=== PATIENT | female | born 1940 | race Caucasian/White ===

== ENCOUNTER 2019-10-11 10:30 | Outpatient (CLI) | payer OTHER, SELFPAY ==
--- NOTE | ~2019-10-11 | MM_ITS ---
EXAMINATION: MM screening ligia BI w radha HISTORY: Screening mammogram TECHNIQUE: Craniocaudal and mediolateral oblique 3-D tomosynthesis images were obtained and synthetic 2-D images were generated. CAD analysis was submitted and interpreted. COMPARISON: 05/01/2018, 03/31/2017 bilateral digital screening mammogram examinations 12/10/2015 diagnostic right digital mammogram and limited right breast ultrasound 11/29/2015 bilateral digital screening mammogram BREAST PARENCHYMAL COMPOSITION: There are scattered areas of fibroglandular density. FINDINGS: A heart monitor device overlies the left breast. There is no evidence of suspicious mass, c alcification, or architectural distortion to suggest malignancy in either breast. There has been no s uspicious interval change. IMPRESSION: 1. No mammographic evidence of malignancy. 2. Recommend routine screening mammography in one year. BI-RADS Category 1: Negative Reviewed, dictated and finalized at location A. TRIMMER
== END 2019-10-11 10:31 | disposition home or self-care (01) ==
LOC: ANHIMG 10:31
PROVIDERS: PCP Family Medicine; Visit Provider Nurse Practitioner Family
DX: Z12.31 Encounter for screening mammogram for malignant neoplasm of breast (principal)
CPT/HCPCS: 77063; 77067

== ENCOUNTER 2019-11-07 14:02 | Outpatient (CLI) | payer OTHER, SELFPAY ==
[2019-11-07 15:11] LABS: Hematocrit 37.2 % (37.0-47.0); Hemoglobin 12.4 g/dL (12.0-15.0)
[2019-11-07 15:23] LABS: Blood Urea Nitrogen 17 mg/dL (7-17); Calcium 9.2 mg/dL (8.4-10.2); Carbon Dioxide 29 mmol/L (22-30); Chloride 90 mmol/L (98-107); Estimated Glomerular Filt Rate > 60; Glucose 88 mg/dL (65-105); Potassium 4.4 mmol/L (3.4-5.0); Sodium 131 mmol/L (137-145)
[2019-11-07 18:29] LABS: Folic Acid > 20.0 ng/mL (2.76->20)
== END 2019-11-07 14:03 | disposition home or self-care (01) ==
PROVIDERS: PCP Family Medicine; Visit Provider Family Medicine
DX: D50.0 Iron deficiency anemia secondary to blood loss (chronic) (principal)
CPT/HCPCS: 36415; 80048; 82607; 82746; 85014; 85018

== ENCOUNTER 2020-04-02 12:38 | Outpatient (CLI) | payer OTHER, SELFPAY ==
--- NOTE | ~2020-04-02 | DEXA_ITS ---
Bone Density Report Name: Jovana Singh Age: 79 Sex: Female Ethnicity: White Date of : 1940 Indication: osteopenia; monitoring treatment; height loss; prior fracture; hysterectomy; postmenopausal Referring Provider: [place] DUQUE Study: Bone densitometry was performed. Exam Date: April 02, 2020 Accession number: [id number] Bone Density: Region BMD T-score Z-score Classification AP Spine (L1, L4) 0.946 -0.8 1.8 Normal Femoral Neck (Left) 0.624 -2.0 0.3 Osteopenia Total Hip (Left) 0.822 -1.0 1.1 Normal Total Hip Bilateral Avg 0.804 -1.2 1.0 Osteopenia Femoral Neck (Right) 0.659 -1.7 0.6 Osteopenia Total Hip (Right) 0.785 -1.3 0.8 Osteopenia World Health Organization criteria for BMD impression classify patients as: Normal (T-score at or above -1.0), Osteopenia (T-score between -1.0 and -2.5), or Osteoporosis (T-score at or below -2.5). 10-year Fracture Risk: FRAX not reported because: Treated for osteoporosis Previous Exams: Region Exam Age BMD T-score BMD Change BMD Change Date g/cm2 vs Baseline vs Previous AP Spine(L1, L4) 04/02/2020 79 0.946 -0.8 0.014(1.5%)# 0.035(3.8%)* 12/03/2015 75 0.911 -1.1 -0.021(-2.2%)# -0.046(-4.8%)# 09/20/2012 72 0.957 -0.7 0.025(2.7%)# 0.011(1.1%)# 04/21/2009 68 0.946 -0.8 0.014(1.5%) 0.014(1.5%) 02/16/2006 65 0.932 -1.0 Total Hip(Left) 04/02/2020 79 0.822 -1.0 -0.073(-8.2%)# -0.032(-3.7%)* 12/03/2015 75 0.854 -0.7 -0.042(-4.6%)# -0.024(-2.7%)# 09/20/2012 72 0.878 -0.5 -0.017(-1.9%)# -0.020(-2.2%)# 04/21/2009 68 0.898 -0.4 0.002(0.3%) 0.002(0.3%) 02/16/2006 65 0.896 -0.4 Total Hip(Right) 04/02/2020 79 0.785 -1.3 -0.095(-10.8%) -0.015(-1.9%) 12/03/2015 75 0.801 -1.2 -0.079(-9.0%)# -0.068(-7.8%)# 09/20/2012 72 0.869 -0.6 -0.011(-1.3%)# 0.009(1.0%)# 04/21/2009 68 0.860 -0.7 -0.020(-2.3%) -0.020(-2.3%) 02/16/2006 65 0.880 -0.5 *Denotes significance at 95% confidence level, LSC for AP Spine = 0.022 g/cm2, LSC for Total Hip = 0.027 g/cm2 Clinical Information Provided by Patient: Has had a low trauma fracture Is being treated for osteoporosis Has the following medical conditions: Hysterectomy Patient maximum height was 67 Menopause Age: 45 Drinks caffeinated beverages Onset of menses at age 12 Number of children 3 Impression: The patient has low bone mass, based on the Left Femoral Neck T-s
== END 2020-04-02 12:39 | disposition home or self-care (01) ==
LOC: ANHIMG 12:41
PROVIDERS: PCP Family Medicine; Visit Provider Family Medicine
DX: Z78.0 Asymptomatic menopausal state (principal); M85.852 Other specified disorders of bone density and structure, left thigh; M85.851 Other specified disorders of bone density and structure, right thigh
CPT/HCPCS: 77080

== ENCOUNTER 2020-12-08 11:26 | Outpatient (CLI) | payer MEDICARE, SELFPAY ==
--- NOTE | ~2020-12-08 | XR_ITS ---
XR knee RT 3V 12/08/2020 11:55 Indication: Right knee pain Procedure: 3 views right knee Comparison: 07/08/2019 Findings: There is mild tricompartment osteoarthritis. No fracture or traumatic malalignment. No sign ificant joint effusion. No radiopaque foreign bodies. Impression: 1: Mild osteoarthritis of the right knee. Reviewed, dictated and finalized at location B. Impression: 1: Mild osteoarthritis of the right knee.
== END 2020-12-08 11:27 | disposition home or self-care (01) ==
PROVIDERS: PCP Internal Medicine; Visit Provider Internal Medicine
DX: M17.11 Unilateral primary osteoarthritis, right knee (principal)
CPT/HCPCS: 73562

== ENCOUNTER 2021-01-13 08:02 | Outpatient (CLI) | payer MEDICARE, SELFPAY ==
--- NOTE | 2021-01-13 12:47 | WPDPFTINT ---
PFT Procedure Performed PFT Procedure Performed Spirometry with Pre/Post Bronchodilator Plethysmography (Lung Vol) Diffusing Cap (DLCO) Flow Vol Loop PFT Interpretation This is a pulmonary function test with pre and post-bronchodilator spirometry, plethysmography and diffusing capacity. The test was performed and results interpreted in accordance with the 2019 and 2005 ATS/ERS Task Force guidelines respectively using the Global Lung Function Initiative-2012 reference equations. Patient demonstrated good effort and cooperation. Reproducibility criteria were met. The quality of the pre bronchodilator spirometry maneuver was Grade A and post bronchodilator spirometry maneuver was Grade A. Findings: Spirometry: There is decreased maximal expiratory airflow at low lung volumes with concave expiratory flow tracing. The contour of the inspiratory flow tracing is normal. The pre bronchodilator FVC is 2.38 L, 87% predicted. The pre bronchodilator FEV1 is 1.60 L, 77% predicted. The FEV1: FVC ratio 67%. The post bronchodilator FVC is 2.49 L, representing a 4% increase. The post bronchodilator FEV1 is 1.69 L, representing a 5% increase. Plethysmography: The total lung capacity is 4.76 L, 89% predicted. The functional residual capacity is 3.02 L, 97% predicted. The residual volume is 2.30 L, 92% predicted. Diffusing capacity: The absolute diffusion capacity is 15.0, 74% predicted. The diffusing capacity corrected for alveolar volume is 3.74, 93% predicted. Impression: There is a mild obstructive abnormality with a normal FEV1 and without significant improvement after inhaling a single dose of albuterol. The lung volumes are normal. The diffusing capacity is normal. There are no prior studies for comparison
== END 2021-01-13 08:03 | disposition home or self-care (01) ==
PROVIDERS: PCP Internal Medicine; Visit Provider Internal Medicine
DX: R06.00 Dyspnea, unspecified (principal)
CPT/HCPCS: 94060; 94726; 94729

== ENCOUNTER → 2021-02-20 07:36 | Outpatient (CLI) | payer MEDICARE, SELFPAY ==
--- NOTE | ~2021-02-20 | MR_ITS ---
EXAMINATION: MR lumbar spine wo con EXAM DATE: 02/20/2021 08:39 INDICATION: Lumbago lbp x 2 yrs worsening, no trauma, no ca TECHNIQUE: Multi-sequential, multiplanar MR images of the lumbar spine were obtained without contrast . Sagittal T1, T2, T2 fat saturation images. Axial T2 weighted images. There is no prior study for comparison. FINDINGS: There is moderate to severe disc disease L1-2, L2-3, L4-5 and L5-S1. Moderate disc disease L3-4 with 2-3 mm anterolisthesis. The conus medullaris terminates at the L1/2 level and has normal si gnal intensity and morphology. Mild to moderate mid thoracic levoscoliosis, thoracolumbar dextroscol iosis. Multilevel endplate degenerative signal change. Paraspinal soft tissue is unremarkable. Level by level evaluation: T12-L1: There is a mild diffuse disc bulge. Facet arthropathy: Mild. Neural foraminal stenosis: No stenosis. Central canal stenosis: No stenosis. L1-L2: There is a mild diffuse disc bulge. Facet arthropathy: Mild. Neural foraminal stenosis: Mild to moderate left. Central canal stenosis: No stenosis. L2-L3: There is a mild to moderate diffuse disc bulge. Facet arthropathy: Mild to moderate. Neural foraminal stenosis: Moderate left, no right. Central canal stenosis: Mild. L3-L4: There is a mild to moderate diffuse disc bulge. Facet arthropathy: Moderate . Ligamentum flavum enlargement . Neural foraminal stenosis: Mild bilateral. Central canal stenosis: Mild. L4-L5: There is a moderate diffuse disc bulge asymmetric to the right Facet arthropathy: Mild to moderate. Neural foraminal stenosis: Moderate right, no left. Central canal stenosis: Mild. L5-S1: There is a mild to moderate diffuse disc bulge. Facet arthropathy: Mild. Neural foraminal stenosis: Moderate right, mild left. Central canal stenosis: No stenosis. IMPRESSION: 1. Mild to moderate thoracolumbar scoliosis. 2. Moderate to severe lumbar disc disease. 3. Up to moderate neural foraminal stenosis, left-sided at L2-3, right-sided L4-5 and L5-S1. Reviewed, dictated and finalized at location A. IMPRESSION: 1. Mild to moderate thoracolumbar scoliosis. 2. Moderate to severe lumbar disc disease. 3. Up to moderate neural foraminal stenosis, left-sided at L2-3, right-sided L 4-5 and L5-S1.
== END ==
PROVIDERS: Visit Provider Nurse Practitioner Family
DX: M51.36 Other intervertebral disc degeneration, lumbar region (principal); M41.9 Scoliosis, unspecified
CPT/HCPCS: 72148

== ENCOUNTER 2021-03-10 02:05 | Day surgery (SDC) | payer MEDICARE, SELFPAY ==
[2021-03-02 12:24] VITALS: BMI 21.7
[2021-03-10 09:24] VITALS: BP 166/64; PULSE 65; RESP 15; TEMP 36.2; O2SAT 99; BMI 21.0
[2021-03-10] MEDS: LACTATED RINGERS 1,000 ML 150 ML IV CONT (09:29)
--- NOTE | 2021-03-10 10:11 | WPDANESEPPF ---
Anes - Initial Pre Proc Eval Procedure: Operation Date: 03/10/21 10:00 Proposed Procedures p Colonoscopy - Avelino Kelly MD Date/Time: 03/10/21 10:11 Surgeon: Avelino Kelly MD Pre Op Diagnosis: Change in Bowel habits Patient Data Age: 80 Gender: F Height: 1.68 m Weight: 59.2 kg Last Vital Signs Temp 97.2 F L 03/10/21 09:24 Pulse 65 03/10/21 09:24 Resp 15 03/10/21 09:24 BP 166/64 H 03/10/21 09:24 Pulse Ox 99 03/10/21 09:24 Allergies Allergy/AdvReac Type Severity Reaction Status Date / Time doxycycline Allergy Mild abdominal Verified 03/10/21 09:22 pain CINDY Inhibitors Allergy Unknown unknown Verified 03/10/21 09:22 losartan Allergy Unknown unknown Verified 03/10/21 09:22 quinapril Allergy Unknown unknown Verified 03/10/21 09:22 trazodone Allergy Unknown unknown Verified 03/10/21 09:22 Home Medications Medication Instructions Recorded Confirmed Type aspirin [Adult Low Dose Aspirin] 81 mg PO DAILY 07/15/19 03/10/21 History sotalol [Betapace] 80 mg PO BID 07/15/19 03/10/21 History amlodipine 2.5 mg tablet 2.5 mg PO DAILY 08/20/20 03/10/21 History ezetimibe 10 mg tablet 10 mg PO DAILY #90 tablet 12/30/20 03/10/21 Rx oxybutynin chloride 10 mg 10 mg PO DAILY #90 tablet 12/30/20 03/10/21 Rx tablet,extended release 24 hr tramadol 50 mg tablet 50 mg PO Q8H PRN #90 tablet 02/10/21 03/10/21 Rx atorvastatin 80 mg PO DAILY 03/02/21 03/10/21 History zolpidem 10 mg PO PRN PRN 03/02/21 03/10/21 History Patient hx anesthesia problems: none Family hx anesthesia problems: none PMFSH Past Medical History Medical History A-fib Acquired absence of other right toe(s) Anemia BP (high blood pressure) CAD (coronary artery disease), [place] coronary artery Chronic diastolic (congestive) heart failure COPD (chronic obstructive pulmonary disease) Lumbar spondylosis Mitral regurgitation and aortic stenosis Mixed hyperlipidemia Peripheral vascular disease, unspecified Pulmonary HTN Surgical History Surgical History H/O maze procedure History of MVR with cardiopulmonary bypass Hx of CABG Hx of cataract surgery Hx of hysterectomy S/P angioplasty with stent Family History Family History Mother Family history of premature coronary heart disease, Onset Age: 49 Grandparent Family history of primary malignant neoplasm of liver Other Cerebrovascular accident Diabetes mellitus Family history of cardiovascular disease Family history of malignant neoplasm Hypertension Social History Social History Social History: Engaged Smoking status: Never smoker Second hand tobacco smoke exposure: No Alcohol intake: former Substance use: never Substance use type: does not use Living arrangements: with family Additional living arrangements comments: Pt lives with her fiance Gender identity (if verbalized by the patient): Female Spiritual care concerns: No Anes - Eval Final PreProcedure Day of Procedure 03/10/21 10:11 Patient weight: normal Heart: regular rate and rhythm Airway: Mallampati scale class II Neurological: alert and oriented Last oral intake: >/= 8 hours ASA classification: III Emergent: no Anesthetic plan: proceed Anesthesia type and monitoring: general GIVS and standard monitoring Informed Consent: The patient's anesthetic plan and its attendant risks and benefits were discussed with the patient/family/POA. Questions were solicited and answers provided to the satisfaction of the patient/family/POA.
--- NOTE | 2021-03-10 10:24 | PM.HPGS ---
History of Present Illness History of Present Illness Consent: Risks, benefits, and alternatives have been discussed and questions answered. Patient agrees to proceed with procedure. Chief complaint: Change in Bowel habits Narrative: Jovana Singh is a 80 year old female was noticed a change in her stools. Very often she has loose or unformed stools in the morning. There has been no blood in her stools Review of Systems Review of Systems: All systems reviewed & are unremarkable except as noted in HPI and below PMFSH Past Medical History Medical History A-fib Acquired absence of other right toe(s) Anemia BP (high blood pressure) CAD (coronary artery disease), [place] coronary artery Chronic diastolic (congestive) heart failure COPD (chronic obstructive pulmonary disease) Lumbar spondylosis Mitral regurgitation and aortic stenosis Mixed hyperlipidemia Peripheral vascular disease, unspecified Pulmonary HTN Surgical History Surgical History H/O maze procedure History of MVR with cardiopulmonary bypass Hx of CABG Hx of cataract surgery Hx of hysterectomy S/P angioplasty with stent Family History Family History Mother Family history of premature coronary heart disease, Onset Age: 49 Grandparent Family history of primary malignant neoplasm of liver Other Cerebrovascular accident Diabetes mellitus Family history of cardiovascular disease Family history of malignant neoplasm Hypertension Social History Social History Social History: Engaged Smoking status: Never smoker Second hand tobacco smoke exposure: No Alcohol intake: former Substance use: never Substance use type: does not use Living arrangements: with family Additional living arrangements comments: Pt lives with her fiance Gender identity (if verbalized by the patient): Female Spiritual care concerns: No Meds Home Medications and Allergies Home Medications Medication Instructions Recorded Confirmed Type aspirin [Adult Low Dose Aspirin] 81 mg PO DAILY 07/15/19 03/10/21 History sotalol [Betapace] 80 mg PO BID 07/15/19 03/10/21 History amlodipine 2.5 mg tablet 2.5 mg PO DAILY 08/20/20 03/10/21 History ezetimibe 10 mg tablet 10 mg PO DAILY #90 tablet 12/30/20 03/10/21 Rx oxybutynin chloride 10 mg 10 mg PO DAILY #90 tablet 12/30/20 03/10/21 Rx tablet,extended release 24 hr tramadol 50 mg tablet 50 mg PO Q8H PRN #90 tablet 02/10/21 03/10/21 Rx atorvastatin 80 mg PO DAILY 03/02/21 03/10/21 History zolpidem 10 mg PO PRN PRN 03/02/21 03/10/21 History Allergies Allergy/AdvReac Type Severity Reaction Status Date / Time doxycycline Allergy Mild abdominal Verified 03/10/21 09:22 pain CINDY Inhibitors Allergy Unknown unknown Verified 03/10/21 09:22 losartan Allergy Unknown unknown Verified 03/10/21 09:22 quinapril Allergy Unknown unknown Verified 03/10/21 09:22 trazodone Allergy Unknown unknown Verified 03/10/21 09:22 Vital Signs Vital Signs - 24 hr 03/10/21 09:24 Temperature 36.2 C L Pulse Rate 65 Respiratory Rate 15 Blood Pressure 166/64 H Pulse Oximetry 99 Exam Resp: Auscultation: clear to auscultation bilaterally Cardio: Rate: regular rate Rhythm: regular rhythm GI: GI Palp: Yes Soft to palpation and No Tenderness to palpation present (GI) Assessment and Plan Assessment and plan (1) Change in bowel habits: Code(s): R19.4 - Change in bowel habit Status: Acute Assessment and Plan: Colonoscopy with possible biopsy or polypectomy or cautery or injection of substances.
[2021-03-10 10:46] VITALS: BP 125/58; PULSE 57; RESP 15; O2SAT 98
[2021-03-10 10:56] VITALS: BP 129/57; PULSE 56; RESP 21; O2SAT 98
== END 2021-03-10 11:25 | disposition home or self-care (01) ==
PROVIDERS: PCP Internal Medicine; Visit Provider Internal Medicine Gastroenterology
PROC: 0DJD8ZZ Inspection of Lower Intestinal Tract, Via Natural or Artificial Opening Endoscopic (ICD-10-PCS; CPT 45378; principal; 2021-03-10 10:00)
DX: R19.4 Change in bowel habit (principal); K57.30 Diverticulosis of large intestine without perforation or abscess without bleeding; I48.91 Unspecified atrial fibrillation; D64.9 Anemia, unspecified; I25.10 Atherosclerotic heart disease of native coronary artery without angina pectoris; I11.0 Hypertensive heart disease with heart failure; I50.32 Chronic diastolic (congestive) heart failure; J44.9 Chronic obstructive pulmonary disease, unspecified; E78.2 Mixed hyperlipidemia; I73.9 Peripheral vascular disease, unspecified; M47.816 Spondylosis without myelopathy or radiculopathy, lumbar region; I34.0 Nonrheumatic mitral (valve) insufficiency; I35.0 Nonrheumatic aortic (valve) stenosis; Z95.1 Presence of aortocoronary bypass graft; Z95.820 Peripheral vascular angioplasty status with implants and grafts; Z79.891 Long term (current) use of opiate analgesic
CPT/HCPCS: 45380; 88305; J2704; J7120

== ENCOUNTER 2021-04-10 08:35 | Observation (INO) | payer MEDICARE, SELFPAY ==
[2021-04-10] VITALS (14 sets, daily range): BP systolic 119–177; BP diastolic 55–85; PULSE 50–83; RESP 8–18; TEMP 36.2–37.1; O2SAT 97–99; BMI 21.2
--- NOTE | ~2021-04-10 | XR_ITS ---
EXAMINATION: XR chest 2V DATE: 04/10/2021 09:05 INDICATION: Midsternal chest pain TECHNIQUE: frontal and lateral views of the chest were obtained. COMPARISON: Chest radiograph dated 02/21/2019 FINDINGS: Hyperexpansion of lungs which remain clear with no focal airspace opacities, pulmonary edema, pleural effusion or pneumothorax. Cardiomegaly. Median sternotomy mediastinal surgical clips potentially rel ated to coronary artery bypass grafting and cardiac valve repair, likely tricuspid. Corner artery brady nting. Left pectoral implantable potline monitor. Multiple old healed lateral left rib fractures. Mil d S-shaped scoliosis of the thoracic spine with mild to moderate spondylosis. IMPRESSION: 1. No acute cardiopulmonary disease. Reviewed, dictated and finalized at location A.
--- NOTE | 2021-04-10 08:36 | ECG_ITS ---
Measurements Intervals [place] Rate: 53 P: 46 MN: 197 QRS: -19 QRSD: 115 T: 61 QT: 481 QTc: 453 Interpretive Statements SINUS BRADYCARDIA RSR' IN V1 OR V2, CONSIDER RIGHT VENTRICULAR HYPERTROPHY OR RIGHT VCD DELAYED PRECORDIAL R/S TRANSITION VOLTAGE CRITERIA FOR LVH BORDERLINE ECG Electronically Signed On 04-10-2021 10:47:32 CDT by Prabhu Crockett D.O.
[2021-04-10 08:54] LABS: Basophils Percent Auto 0.3 % (0.2-1.2); Eosinophils Absolute Auto 0.2 K/mm3 (0-0.3); Eosinophils Percent Auto 1.8 % (0-4.4); Hematocrit 38.1 % (37.0-47.0); Hemoglobin 12.3 g/dL (12.0-15.0); Immature Granulocyte Absolute 0.02 K/mm3 (0.00-0.031); Immature Granulocyte Percent A 0.2 % (0-0.5); Lymphocytes Absolute Auto 1.39 K/mm3 (0.9-3.2); Lymphocytes Percent Auto 15.8 % (18.3-44.2); Mean Corpuscular HGB Conc 32.3 g/dl (32-36); Mean Corpuscular Hemoglobin 30.3 pg (26-34); Mean Corpuscular Volume 93.8 fl (80-100); Monocytes Absolute Auto 0.8 K/mm3 (0.1-0.6); Neutrophils Absolute Auto 6.4 K/mm3 (1.3-6.7); Neutrophils Percent Auto 72.9 % (45.5-73.1); Platelet Count Result 217 k/mm3 (150-375); Red Blood Count 4.06 M/mm3 (4.2-5.4); Red Cell Distribution Width 14.2 % (11.5-14.5); White Blood Count 8.8 K/mm3 (4.5-10.0)
[2021-04-10 09:03] LABS: INR 0.9; Prothrombin Time 12.4 Seconds (11.1-14.7)
[2021-04-10 09:04] LABS: Partial Thromboplastin Time 26.6 SECONDS (22.3-36.8)
[2021-04-10 09:06] LABS: Anion Gap 6 mmol/L (8-16); Blood Urea Nitrogen 16 mg/dL (7-17); Calcium 9.1 mg/dL (8.4-10.2); Carbon Dioxide 27 mmol/L (22-30); Chloride 102 mmol/L (98-107); Estimated CRCL calculation 70 ml/min; Estimated Glomerular Filt Rate > 60; Glucose 90 mg/dL (65-110); Potassium 3.9 mmol/L (3.4-5.0); Sodium 135 mmol/L (137-145)
[2021-04-10 09:17] LABS: Troponin I 0.013 ng/mL (0.000-0.034)
[2021-04-10] MEDS: ASPIRIN 81 MG CHEWABLE TABLET 324 MG PO (10:10)
--- NOTE | 2021-04-10 10:23 | ED.CHESTPAIN ---
HPI - Chest Pain General Chief Complaint: Chest Pain Stated Complaint: CHEST PAIN Time Seen by Provider: 04/10/21 09:51 Source: patient, family and RN notes reviewed History of Present Illness HPI narrative: Patient is 80 years old white female woke up this morning to go to the bathroom, after finishing her bowel movement with quite a bit of straining because of constipation developed chest tightness radiating to the upper back, was 8 out of 10, patient usually takes all her medications before getting out of bed in the morning, including tramadol for chronic intermittent lower back pain. Patient reports the upper back pain is new and never had it before. The above symptoms lasted for almost 1 hour currently feeling much better, her pain less than 1 out of 10 at this time. Patient been trying to increase weight lifting in the last few weeks, used to be 5 pounds lately 10 pounds over the last 2 weeks. Patient is fully vaccinated for COVID-19, denies any fever, chills, nausea, vomiting, shortness of breath. History of hypertension, hyperlipidemia, CABG, coronary stents and cardiac valve replacement. Patient on baby aspirin once a day Related Data Home Medications Medication Instructions Recorded Confirmed aspirin [Adult Low Dose Aspirin] 81 mg PO DAILY 07/15/19 03/10/21 sotalol [Betapace] 80 mg PO BID 07/15/19 03/10/21 amlodipine 2.5 mg tablet 2.5 mg PO DAILY 08/20/20 03/10/21 atorvastatin 80 mg PO DAILY 03/02/21 03/10/21 zolpidem 10 mg PO PRN PRN 03/02/21 03/10/21 Allergies Allergy/AdvReac Type Severity Reaction Status Date / Time doxycycline Allergy Mild abdominal Verified 04/10/21 08:43 pain CINDY Inhibitors Allergy Unknown unknown Verified 04/10/21 08:43 losartan Allergy Unknown unknown Verified 04/10/21 08:43 quinapril Allergy Unknown unknown Verified 04/10/21 08:43 trazodone Allergy Unknown unknown Verified 04/10/21 08:43 Review of Systems Review of Systems: CONSTITUTIONAL: Denies fever, chills, or sweats. EYES: Denies visual changes, redness, or discharge. ENT: Denies rhinorrhea, congestion, sore throat, or otalgia. CARDIOVASCULAR: Denies chest pain, palpitations, or edema. RESPIRATORY: Denies cough or dyspnea. GASTROINTESTINAL: Denies abdominal pain, nausea, vomiting, or diarrhea. GENITOURINARY: Denies dysuria or hematuria. SKIN: Denies rash or itching. MUSCULOSKELETAL: Denies back pain, joint pain, or myalgia. NEUROLOGIC: Denies headache, numbness, or weakness. PSYCHIATRIC: Denies anxiety or depression. [facility] Past Medical History Medical History A-fib Acquired absence of other right toe(s) Anemia BP (high blood pressure) CAD (coronary artery disease), [place] coronary artery Chronic diastolic (congestive) heart failure COPD (chronic obstructive pulmonary disease) Lumbar spondylosis Mitral regurgitation and aortic stenosis Mixed hyperlipidemia Peripheral vascular disease, unspecified Pulmonary HTN Surgical History Surgical History H/O maze procedure History of MVR with cardiopulmonary bypass Hx of CABG Hx of cataract surgery Hx of hysterectomy S/P angioplasty with stent Family History Family History Mother Family history of premature coronary heart disease, Onset Age: 49 Grandparent Family history of primary malignant neoplasm of liver Other Cerebrovascular accident Diabetes mellitus Family history of cardiovascular disease Family history of malignant neoplasm Hypertension Social History Social History Social History: Engaged Smoking status: Never smoker Second hand tobacco smoke exposure: No Alcohol intake: former Substance use: never Substance use type: does not use Additional living arrangements comments: Pt lives with her fiance Gender identity (if verbalized by the p
[2021-04-10] MEDS: NITROGLYCERIN OINTMENT 1 INCH DOSE TRANSDERM ×3 (10:46→23:07)
[2021-04-10] MEDS: ENOXAPARIN 60 MG/0.6 ML SYRINGE SUB-Q (10:46)
--- NOTE | 2021-04-10 11:11 | PM.IMHP ---
H&P: HPI History of Present Illness Date/Time: 04/10/21 11:11 80yo F w PVD, PAH, HTN, HLD, COPD, HFpEF, CAD, Afib (in NSR), hx of CABG and PCI w stenting, presents to ER w c/o CP that felt pressure like in the center of her chest and in her back. Pt states that this moring she awoke and took her nine morning pills, went to restroom, and upon return suddenly had onset of pressure. She went to lay down and massaged her back with some improvement, but tightness did not resolve after an hour so she sought medical attention. Chest pressure was associated w sensation of pill feeling stuck in her throat and nausea. She denies h/o heartburn or reflux. She rides her horse 3 times a week. She denies any symptoms of CP, SOB, fatigue, jaw pain, nausea or other symptoms while carrying her heavy saddle or riding her horse. Her Dielectric Tester is Dr Miranda and she is followed regularly. Chief Complaint: chest tightness Review of Systems Review of Systems: 14 point ROS negative except for arthralgias PMFSH Past Medical History Medical History A-fib Acquired absence of other right toe(s) Anemia BP (high blood pressure) CAD (coronary artery disease), [place] coronary artery Chronic diastolic (congestive) heart failure COPD (chronic obstructive pulmonary disease) Lumbar spondylosis Mitral regurgitation and aortic stenosis Mixed hyperlipidemia Peripheral vascular disease, unspecified Pulmonary HTN Surgical History Surgical History H/O maze procedure History of MVR with cardiopulmonary bypass Hx of CABG Hx of cataract surgery Hx of hysterectomy S/P angioplasty with stent Family History Family History Mother Family history of premature coronary heart disease, Onset Age: 49 Grandparent Family history of primary malignant neoplasm of liver Other Cerebrovascular accident Diabetes mellitus Family history of cardiovascular disease Family history of malignant neoplasm Hypertension Social History Social History Social History: Engaged Smoking status: Never smoker Second hand tobacco smoke exposure: No Alcohol intake: never Substance use: never Substance use type: does not use Additional living arrangements comments: Pt lives with her tiffanie Gender identity (if verbalized by the patient): Female Spiritual care concerns: No Meds Home Medications and Allergies Home Medications Medication Instructions Recorded Confirmed Type aspirin [Adult Low Dose Aspirin] 81 mg PO DAILY 07/15/19 04/10/21 History sotalol [Betapace] 80 mg PO BID 07/15/19 04/10/21 History amlodipine 2.5 mg tablet 2.5 mg PO DAILY 08/20/20 04/10/21 History ezetimibe 10 mg tablet 10 mg PO DAILY #90 tablet 12/30/20 04/10/21 Rx oxybutynin chloride 10 mg 10 mg PO DAILY #90 tablet 12/30/20 04/10/21 Rx tablet,extended release 24 hr atorvastatin 80 mg PO HS 03/02/21 04/10/21 History zolpidem 10 mg PO PRN PRN 03/02/21 04/10/21 History budesonide 3 mg 9 mg PO DAILY #90 ea 03/17/21 04/10/21 Rx capsule,delayed,extended release tramadol 50 mg tablet 50 mg PO Q8H PRN #90 tablet 03/30/21 04/10/21 Rx Allergies Allergy/AdvReac Type Severity Reaction Status Date / Time doxycycline Allergy Mild abdominal Verified 04/10/21 13:04 pain CINDY Inhibitors Allergy Unknown unknown Verified 04/10/21 13:04 losartan Allergy Unknown unknown Verified 04/10/21 13:04 quinapril Allergy Unknown unknown Verified 04/10/21 13:04 trazodone Allergy Unknown unknown Verified 04/10/21 13:04 Vital Signs Vital Signs - 24 hr 04/10/21 08:40 04/10/21 08:43 04/10/21 08:45 Temperature 98.0 F Pulse Rate 53 L 83 Respiratory Rate 11 L Blood Pressure 177/85 H Pulse Oximetry 98 98 04/10/21 09:25 04/10/21 10:32 Temperature Pulse Rate 50 L 53 L Respiratory
[2021-04-10 12:49] LABS: Troponin I < 0.012 ng/mL (0.000-0.034)
--- NOTE | 2021-04-10 13:02 | ADMGEN ---
This patient, Jovana Singh, was admitted to IMU Room 205-02. Patient/family oriented to hospital policies and general routines including ID bracelet, bed and alarms, visiting hours, pain management, procedures, bathroom and other care routines, personal items, smoking policy, room service/diet, and visiting hours. Information on how to activate the Rapid Response Team has been discussed. Patient/Family are encouraged to report perceived risks to care and to ask questions if they do not understand what they are told or what they should do.
[2021-04-10 14:43] LABS: Troponin I < 0.012 ng/mL (0.000-0.034)
[2021-04-10] MEDS: ATORVASTATIN 40 MG TABLET 80 MG PO (21:05)
[2021-04-10] MEDS: SOTALOL HCL 80 MG TABLET PO (21:06)
[2021-04-10] MEDS: ZOLPIDEM TARTRATE (*CRX) 5 MG TABLET 10 MG PO (21:48)
[2021-04-11] VITALS (7 sets, daily range): BP systolic 129–173; BP diastolic 54–68; PULSE 53–68; RESP 16–18; TEMP 36.1–36.9; O2SAT 97–100
[2021-04-11 05:40] LABS: Basophils Percent Auto 0.4 % (0.2-1.2); Eosinophils Absolute Auto 0.1 K/mm3 (0-0.3); Eosinophils Percent Auto 1.8 % (0-4.4); Hemoglobin 11.5 g/dL (12.0-15.0); Immature Granulocyte Absolute 0.02 K/mm3 (0.00-0.031); Immature Granulocyte Percent A 0.3 % (0-0.5); Lymphocytes Absolute Auto 1.85 K/mm3 (0.9-3.2); Lymphocytes Percent Auto 23.3 % (18.3-44.2); Mean Corpuscular HGB Conc 31.9 g/dl (32-36); Mean Corpuscular Hemoglobin 30.3 pg (26-34); Mean Platelet Volume 9.5 fl (7.4-10.4); Monocytes Absolute Auto 0.7 K/mm3 (0.1-0.6); Monocytes Percent Auto 8.8 % (2.6-8.5); Neutrophils Absolute Auto 5.2 K/mm3 (1.3-6.7); Neutrophils Percent Auto 65.4 % (45.5-73.1); Platelet Count Result 202 k/mm3 (150-375); Red Blood Count 3.79 M/mm3 (4.2-5.4); Red Cell Distribution Width 14.5 % (11.5-14.5); White Blood Count 7.9 K/mm3 (4.5-10.0)
[2021-04-11] MEDS: NITROGLYCERIN OINTMENT 1 INCH DOSE TRANSDERM (05:47)
[2021-04-11 05:53] LABS: Anion Gap 5 mmol/L (8-16); Blood Urea Nitrogen 12 mg/dL (7-17); Calcium 9.1 mg/dL (8.4-10.2); Carbon Dioxide 29 mmol/L (22-30); Chloride 100 mmol/L (98-107); Estimated CRCL calculation 70 ml/min; Estimated Glomerular Filt Rate > 60; Glucose 81 mg/dL (65-110); Magnesium 1.9 mg/dL (1.6-2.3); Sodium 134 mmol/L (137-145)
--- NOTE | 2021-04-11 06:00 | ECG_ITS ---
Measurements Intervals [place] Rate: 54 P: 38 DE: 172 QRS: -38 QRSD: 109 T: 13 QT: 465 QTc: 443 Interpretive Statements SINUS BRADYCARDIA LEFT AXIS DEVIATION VOLTAGE CRITERIA FOR LVH NONSPECFIC ST ELEVATION IN ANTERIOR LEADS BORDERLINE ECG Electronically Signed On 04-11-2021 7:10:52 CDT by Prabhu Crockett D.O.
[2021-04-11] MEDS: ASPIRIN 81 MG CHEWABLE TABLET PO (08:08)
[2021-04-11] MEDS: amLODIPine BESYLATE 2.5 MG TABLET PO (08:09)
[2021-04-11] MEDS: EZETIMIBE 10 MG TABLET PO (08:09)
[2021-04-11] MEDS: SOTALOL HCL 80 MG TABLET PO (08:10)
[2021-04-11] MEDS: BUDESONIDE 3 MG CAP.SR.24H 9 MG PO (08:10)
[2021-04-11] MEDS: traMADol HCL (*CRX) 50 MG TABLET PO (11:11)
--- NOTE | 2021-04-11 12:22 | PM.IMPN ---
Progress Note: A&P Assessment and Plan (1) Chest pain: Qualifiers: Chest pain type: unspecified Qualified Code(s): R07.9 - Chest pain, unspecified Code(s): R07.9 - Chest pain, unspecified Status: Acute Assessment and Plan: Monitor cardiac enzymes, check 2D echo (2) Essential (primary) hypertension: Code(s): I10 - Essential (primary) hypertension Status: Acute Assessment and Plan: stable on medication (3) COPD (chronic obstructive pulmonary disease): Code(s): J44.9 - Chronic obstructive pulmonary disease, unspecified Status: Acute Assessment and Plan: stable on med (4) Acquired absence of other right toe(s): Code(s): Z89.421 - Acquired absence of other right toe(s) Status: Acute Assessment and Plan: stable (5) Peripheral vascular disease, unspecified: Code(s): I73.9 - Peripheral vascular disease, unspecified Status: Acute Assessment and Plan: stable on meds (6) Chronic diastolic (congestive) heart failure: Code(s): I50.32 - Chronic diastolic (congestive) heart failure Status: Acute Assessment and Plan: stable on (7) Hx of CABG: Code(s): Z95.1 - Presence of aortocoronary bypass graft Status: Acute Assessment and Plan: stable (8) MDD (major depressive disorder), recurrent episode, moderate: Code(s): F33.1 - Major depressive disorder, recurrent, moderate Status: Acute Assessment and Plan: stable on med (9) History of MVR with cardiopulmonary bypass: Code(s): Z95.2 - Presence of prosthetic heart valve Status: Acute Assessment and Plan: stable on med (10) Pulmonary HTN: Code(s): I27.20 - Pulmonary hypertension, unspecified Status: Acute Assessment and Plan: stable on med (11) A-fib: Code(s): I48.91 - Unspecified atrial fibrillation Status: Acute Assessment and Plan: stable on Additional Plan CP r/o ACS admit to tele monitor overnight VS per protocol serial trops serial EKGs PPI ASA cont home meds SCDs VTEP 04/11/2021 will continue current plan of care and treatment. Will consult Cardiology. Possible discharge in the morning. Subjective Date/time seen: 04/11/21 12:22 Patient was seen during the morning rounds today. Patient has mild chest pain last night, feeling better now. No shortness of breath. No abdominal pain, no nausea, no vomiting. Mood stable. Review of Systems Review of Systems: All systems reviewed & are unremarkable except as noted in HPI and below ( the history and physical examination) Exam Const: General: comfortable and no acute distress HENMT: General nose exam: Normal nares present Mouth: Yes moist mucous membranes Eyes: General: appearance normal, both eyes and all related structures Neck: Neck: supple and no JVD Resp: Auscultation: clear to auscultation bilaterally Cardio: Rate: regular rate Rhythm: regular rhythm GI: Inspection: non-distended Skin: General skin exam: normal color, no rashes or lesions noted and no erythema Neuro: Cognition (Neuro): normal cognition Speech: normal speech Motor exam (neuro): 5/5 motor strength present throughout and Normal motor muscle tone present throughout Extrem: General: normal exam except as noted, no edema and no pedal edema Right lower extremity: foot Details: abnormal to inspection (2nd digit amputated ) Psych: Mental Status: mental status grossly normal Affect: normal affect Objective Data Vital Signs Vital Signs: Vital Signs - 24 hr 04/10/21 14:00 04/10/21 16:00 04/10/21 18:00 Temperature 37.1 C Pulse Rate 60 59 L 59 L Respiratory Rate 16 Blood Pressure 130/62 Pulse Oximetry 97 04/10/21 20:00 04/10/21 21:06 04/10/21 22:00 Temperature 36.2 C L Pulse Rate 62 63 67 Respiratory Rate 16 Blood Pressure 130/61 Pulse Oximetry 98
--- NOTE | 2021-04-11 13:11 | PM.DS ---
DS: Admitting Diagnosis Admitting Diagnosis Chest pain DS: Discharge Diagnosis Discharge Diagnosis (1) Chest pain: Qualifiers: Chest pain type: unspecified Qualified Code(s): R07.9 - Chest pain, unspecified Code(s): R07.9 - Chest pain, unspecified Status: Acute Assessment and Plan: Monitor cardiac enzymes, check 2D echo (2) Essential (primary) hypertension: Code(s): I10 - Essential (primary) hypertension Status: Acute Assessment and Plan: stable on medication (3) COPD (chronic obstructive pulmonary disease): Code(s): J44.9 - Chronic obstructive pulmonary disease, unspecified Status: Acute Assessment and Plan: stable on med (4) Acquired absence of other right toe(s): Code(s): Z89.421 - Acquired absence of other right toe(s) Status: Acute Assessment and Plan: stable (5) Peripheral vascular disease, unspecified: Code(s): I73.9 - Peripheral vascular disease, unspecified Status: Acute Assessment and Plan: stable on meds (6) Chronic diastolic (congestive) heart failure: Code(s): I50.32 - Chronic diastolic (congestive) heart failure Status: Acute Assessment and Plan: stable on (7) Hx of CABG: Code(s): Z95.1 - Presence of aortocoronary bypass graft Status: Acute Assessment and Plan: stable (8) MDD (major depressive disorder), recurrent episode, moderate: Code(s): F33.1 - Major depressive disorder, recurrent, moderate Status: Acute Assessment and Plan: stable on med (9) History of MVR with cardiopulmonary bypass: Code(s): Z95.2 - Presence of prosthetic heart valve Status: Acute Assessment and Plan: stable on med (10) Pulmonary HTN: Code(s): I27.20 - Pulmonary hypertension, unspecified Status: Acute Assessment and Plan: stable on med (11) A-fib: Code(s): I48.91 - Unspecified atrial fibrillation Status: Acute Assessment and Plan: stable on DS: Summary Hospital Course Reason for hospitalization: chest pain Hospital Course: 80 years old female was admitted complains of having chest pain. Patient chest x-ray, EKG, cardiac enzymes are all negative. Patient physical examination normal. Patientdoes not want to wait for 2D echo or cardiac evaluation. Patient is discharged at her request in stable condition. Schedule stress test as an outpatient and cardiology follow of as an outpatient. Time Spent with Patient Time attestation: Total time spent providing and/or coordinating discharge services: Exam Const: General: cooperative and no acute distress Orientation/consciousness: oriented to person, oriented to place, oriented to time and patient oriented x3 HENMT: Head: normal to inspection Ears: hearing grossly normal bilaterally and external ears normal General nose exam: Normal external nose present Face and sinus: normal facial exam Mouth: Yes Normal oral and palatal mucosa present Eyes: General: appearance normal, both eyes and all related structures Neck: Neck: normal visual inspection and full ROM Chest: Chest palpation & inspection: normal inspection of the chest and normal palpation of entire chest wall Resp: Effort & Inspection: normal respiratory effort Auscultation: clear to auscultation bilaterally Cardio: Jugular venous distension: no JVD Palpation: normal PMI Rate: regular rate Heart sounds: S1 normal heart sound present and S2 normal heart sound present GI: Inspection: normal to inspection GI Palp: No abdominal tenderness Neuro: General: oriented to person, oriented to place, oriented to time and patient oriented x3 Cranial nerves: Yes CN's II-XII intact bilaterally Speech: normal speech Gait exam (Neuro): Normal gait present Motor exam (neuro): 5/5 motor strength present throughout Sensory Exam: normal sensation Psych: Appearance: grossly normal
== END 2021-04-11 13:30 | disposition home or self-care (01) ==
LOC: ANHED 09:51 → ANHIMU 12:09
PROVIDERS: Admitting Provider Hospitalist; Emergency Provider Emergency Medicine; PCP Internal Medicine; Visit Provider Internal Medicine
DX: R07.9 Chest pain, unspecified (principal); I11.0 Hypertensive heart disease with heart failure; I50.32 Chronic diastolic (congestive) heart failure; I73.9 Peripheral vascular disease, unspecified; I48.91 Unspecified atrial fibrillation; I25.10 Atherosclerotic heart disease of native coronary artery without angina pectoris; E78.5 Hyperlipidemia, unspecified; J44.9 Chronic obstructive pulmonary disease, unspecified; Z95.1 Presence of aortocoronary bypass graft; Z95.5 Presence of coronary angioplasty implant and graft; Z89.421 Acquired absence of other right toe(s)
CPT/HCPCS: 36415; 71046; 80048; 83735; 84443; 84484; 85025; 85610; 85730; 93005; 96372; 99285; A9270; G0378; J1650

== ENCOUNTER → 2021-05-04 02:40 | Outpatient (CLI) | payer MEDICARE, SELFPAY ==
[2021-05-04 19:42] LABS: SARS-CoV-2 RNA PCR Negative
== END ==
PROVIDERS: PCP Internal Medicine; Visit Provider Internal Medicine
DX: R68.89 Other general symptoms and signs (principal); Z20.822 Contact with and (suspected) exposure to COVID-19
CPT/HCPCS: C9803; U0003; U0005

== ENCOUNTER 2021-12-20 15:39 | Outpatient (CLI) | payer MEDICARE, SELFPAY ==
[2021-12-20 17:04] LABS: Mucus Urine Rare /lpf; RBC Urine 0-2 /hpf (0-2)
[2021-12-20 17:08] LABS: Appearance Urine Clear (Clear); Bilirubin Urine Negative (Negative); Color Urine Yellow (Yellow); Glucose Urine UA Negative (Negative); Ketones Urine Negative (Negative); Leukocyte Esterase Ur Negative LEU/UL (NEGATIVE); Nitrate Urine Negative (Negative); Protein Urine Negative (Negative); Specific Grav Ur 1.015 (1.001-1.035); Urobilinogen Urine 0.2 mg/dL (<2.0)
[2021-12-20 17:09] LABS: Add Urine Microscopic? YES; Blood Urine Trace-Intact (Negative)
== END 2021-12-20 15:40 | disposition home or self-care (01) ==
LOC: ANHLAB 15:41
PROVIDERS: PCP Internal Medicine; Visit Provider Physician Assistant
DX: R35.0 Frequency of micturition (principal)
CPT/HCPCS: 81001; 87086; 87088

== ENCOUNTER 2022-02-15 14:51 | Outpatient (CLI) | payer MEDICARE, SELFPAY ==
--- NOTE | ~2022-02-15 | XR_ITS ---
XR wrist LT min 3V DATE: 02/15/2022 15:14 INDICATION: Twisted wrist. Pain. TECHNIQUE: 4 views COMPARISON: None FINDINGS: Osteopenia. There is prominent osteophytic change at the first carpometacarpal joint. No fracture or dislocation, periosteal reaction or bone destruction. IMPRESSION: Osteopenia First carpometacarpal osteoarthritis Reviewed, dictated and finalized at location A.
== END 2022-02-15 14:52 | disposition home or self-care (01) ==
LOC: ANHIMG 14:58
PROVIDERS: PCP Internal Medicine; Visit Provider Internal Medicine
DX: M85.832 Other specified disorders of bone density and structure, left forearm (principal); M19.032 Primary osteoarthritis, left wrist
CPT/HCPCS: 73110

== ENCOUNTER 2022-03-22 07:38 | Outpatient (RCR) | payer MEDICARE, SELFPAY ==
[2022-02-28 08:30] VITALS: BMI 22.6
== END 2022-05-17 09:52 | disposition home or self-care (01) ==
LOC: ANHWOC 07:38
PROVIDERS: PCP Internal Medicine; Visit Provider Internal Medicine
DX: S81.801D Unspecified open wound, right lower leg, subsequent encounter (principal)
CPT/HCPCS: 99212; 99213; G0463

== ENCOUNTER 2022-03-25 15:14 | Outpatient (CLI) | payer MEDICARE, SELFPAY ==
--- NOTE | ~2022-03-25 | US_ITS ---
EXAMINATION: US venous doppler [facility] DATE: 03/25/2022 16:02 INDICATION: Lower extremity pain TECHNIQUE: Grayscale ultrasound images without and with compression and Doppler ultrasound images of the bilateral lower extremity veins were obtained. COMPARISON: None. FINDINGS: The visualized portions of right common femoral vein, profunda (deep) femoral vein, femoral vein, pop liteal vein, posterior tibial veins, peroneal veins and greater saphenous vein outflow are patent. 3. 7 x 1.7 x 3.3 cm anechoic Purdy's cyst at the right popliteal fossa. The visualized portions of left common femoral vein, profunda femoral vein, femoral vein, popliteal v ein, posterior tibial veins, peroneal veins and greater saphenous vein outflow are patent. 5.2 x 1.1 x 1.6 cm anechoic Purdy's cyst at the left popliteal fossa. IMPRESSION: 1. No deep venous thrombosis in either lower limb. 2. Bilateral moderate-sized Purdy's cysts. Reviewed, dictated and finalized at location B.
== END 2022-03-25 15:15 | disposition home or self-care (01) ==
PROVIDERS: PCP Internal Medicine; Visit Provider Internal Medicine Cardiovascular Disease
DX: R29.898 Other symptoms and signs involving the musculoskeletal system (principal); L97.909 Non-pressure chronic ulcer of unspecified part of unspecified lower leg with unspecified severity; G62.9 Polyneuropathy, unspecified; I25.10 Atherosclerotic heart disease of native coronary artery without angina pectoris; M79.605 Pain in left leg; M71.21 Synovial cyst of popliteal space [Baker], right knee; M71.22 Synovial cyst of popliteal space [Baker], left knee
CPT/HCPCS: 93970

== ENCOUNTER 2022-04-29 10:18 | Emergency (ER) | payer MEDICARE, SELFPAY ==
--- NOTE | 2022-04-29 10:24 | ED.WOUNDLAC ---
HPI - Wound/Laceration General Chief Complaint: Wound/Laceration Stated Complaint: WOUND ON R LOWER LEG Time Seen by Provider: 04/29/22 10:24 Source: patient Mode of arrival: ambulatory Limitations: no limitations History of Present Illness HPI narrative: Ms. Singh is a 81-year-old female patient presenting to the clinic today with complaints of a wound to her right lower leg. She reports she hit her leg approximately 1 week ago and has a skin tear to the right anterior lower leg. Also reports that the dog jumped and reinjured again yesterday. She is concerned about infection and healing. Reports that she gets skin tears easily because her skin is so thin. Just had a skin tear a couple months ago that was treated in the wound center. When asked about tetanus patient is unsure if she has had a recent tetanus shot. Related Data Home Medications Medication Instructions Recorded Confirmed aspirin 81 mg tablet,delayed 81 mg PO DAILY 07/15/19 04/19/22 release (Adult Low Dose Aspirin) sotalol 80 mg tablet (Betapace) 80 mg PO BID 07/15/19 04/19/22 amlodipine 2.5 mg tablet 2.5 mg PO DAILY 08/20/20 04/19/22 atorvastatin 80 mg tablet 80 mg PO DAILY 02/28/22 04/19/22 omeprazole 20 mg capsule,delayed 20 mg PO DAILY 02/28/22 04/19/22 release Allergies Allergy/AdvReac Type Severity Reaction Status Date / Time doxycycline Allergy Mild abdominal Verified 04/19/22 08:59 pain CINDY Inhibitors Allergy Unknown unknown Verified 04/19/22 08:59 losartan Allergy Unknown unknown Verified 04/19/22 08:59 quinapril Allergy Unknown unknown Verified 04/19/22 08:59 trazodone Allergy Unknown unknown Verified 04/19/22 08:59 Review of Systems Review of Systems: Pertinent positives per HPI. Patient denies any fever, chills, rash, headache, visual changes, dizziness, cough, runny nose, sore throat, shortness of breath, chest pain, palpitations, nausea, vomiting, diarrhea, constipation, abdominal pain, or any urinary issues. PMFSH Past Medical History Medical History A-fib Acquired absence of other right toe(s) Anemia BP (high blood pressure) CAD (coronary artery disease), [place] coronary artery Chronic diastolic (congestive) heart failure COPD (chronic obstructive pulmonary disease) Lumbar spondylosis Mitral regurgitation and aortic stenosis Mixed hyperlipidemia Peripheral vascular disease, unspecified Pulmonary HTN Surgical History Surgical History H/O maze procedure History of MVR with cardiopulmonary bypass Hx of CABG Hx of cataract surgery Hx of hysterectomy S/P angioplasty with stent Family History Family History Mother Family history of premature coronary heart disease, Onset Age: 49 Grandparent Family history of primary malignant neoplasm of liver Other Cerebrovascular accident Diabetes mellitus Family history of cardiovascular disease Family history of malignant neoplasm Hypertension Social History Social History Social History: Engaged Smoking status: Never smoker Second hand tobacco smoke exposure: No Alcohol intake: never Substance use: never Substance use type: does not use Additional living arrangements comments: Pt lives with her fiance Gender identity (if verbalized by the patient): Female Sexual Orientation (if Verbalized by the Patient): Straight or Heterosexual Spiritual care concerns: No Comments At the time of my signature, I reviewed and agree with the nursing past medical, surgical, social, and family history. There is no relevant family history pertinent to the patient complaint. Exam Narrative: General: Well-developed, well nourished, in no apparent distress Head: Normocephalic, atraumatic. Cardio: Regular rate and rhythm, s
[2022-04-29 10:30] VITALS: BP 156/61; PULSE 60; RESP 16; TEMP 36.8; O2SAT 98
== END 2022-04-29 11:01 | disposition home or self-care (01) ==
PROVIDERS: Emergency Provider Nurse Practitioner Family; PCP Internal Medicine
DX: S81.811A Laceration without foreign body, right lower leg, initial encounter (principal); X58.XXXA Exposure to other specified factors, initial encounter; L08.9 Local infection of the skin and subcutaneous tissue, unspecified; I48.91 Unspecified atrial fibrillation; I25.10 Atherosclerotic heart disease of native coronary artery without angina pectoris; J44.9 Chronic obstructive pulmonary disease, unspecified; M47.816 Spondylosis without myelopathy or radiculopathy, lumbar region; E78.2 Mixed hyperlipidemia; I73.9 Peripheral vascular disease, unspecified; I27.20 Pulmonary hypertension, unspecified; Z95.5 Presence of coronary angioplasty implant and graft; I50.32 Chronic diastolic (congestive) heart failure
CPT/HCPCS: 99213; A9270; G0463

== ENCOUNTER 2022-05-04 07:52 | Outpatient (CLI) | payer MEDICARE, SELFPAY ==
--- NOTE | ~2022-05-04 | US_ITS ---
EXAMINATION: US carotid duplex BI DATE: 05/04/2022 10:14 INDICATION: Syncope. Collapse. TECHNIQUE: Grayscale, color Doppler, and pulsed Doppler images of the cervical carotid arteries were obtained. The degree of vessel stenosis is placed in one of the following categories: normal, <50%, 5 0-69%, >=70% but less than near-occlusion, near-occlusion, or total occlusion. Note that percent sten osis relative to normal distal artery lumen diameter is indirectly measured from velocity measurement s as described by Demetrio, et al. Radiology 2003; 229:340-346. Notes: Normal: Peak systolic velocity <125 centimeters/sec and no plaque <50%. Peak systolic velocity <125 ( EDV <40; ICA/CCA PSV ratio <2.0; used these factors only a tandem lesions or low cardiac output or co ntralateral disease) 50-69 %: PSV 125-230 (EDV 40-100; ratio 2-4) >= 70% but less than near occlusion: PSV greater than 230 (EDV > 100; ratio> 4.0) Near Occlusion: PSV that is variable; markedly narrowed lumen Occlusion: Absent flow on color/spectral Doppler and no lumen on multani scale. COMPARISON: None. FINDINGS: RIGHT: The right common carotid artery (CCA) peak systolic velocity (PSV) is 76 cm/s. The right internal car otid artery (ICA) PSV is 97 cm/s. The right ICA end-diastolic velocity (EDV) is 24 cm/s. The right IC A/CCA PSV ratio is 1.3. The external carotid artery (ECA) PSV is 113 cm/s. There is antegrade flow in the right vertebral artery. LEFT: The left CCA PSV is 84 cm/s. The left ICA PSV is 67 cm/s. The left ICA EDV is 14 cm/s. The left ICA/C CA PSV ratio is 0.8. The ECA PSV is 78 cm/s. There is antegrade flow in the left vertebral artery. IMPRESSION: 1. Less than 50% stenosis in the right internal carotid artery by sonographic criteria. 2. Less than 50% stenosis in the left internal carotid artery by sonographic criteria. Reviewed, dictated and finalized at location A. IMPRESSION: 1. Less than 50% stenosis in the right internal carotid artery by sonographic shanice pu[place]. 2. Less than 50% stenosis in the left internal carotid artery by sonographic trang bird.
--- NOTE | ~2022-05-04 | US_ITS ---
EXAMINATION: US art doppler w press LE BI DATE: 05/04/2022 10:13 INDICATION: Peripheral vascular disease TECHNIQUE: Segmental pressures and plethysmographic and Doppler waveforms of the brachial and lower e xtremity arteries were obtained. COMPARISON: None. FINDINGS: Right and left brachial artery pressures of 152 mm Hg and 161 mm Hg, respectively, are concordant (no rmal difference <= 30 mmHg). The right and left high-thigh pressure indices are unable to be obtained due to inability to occlude the vessels (normal > 1.2). The right ankle-brachial index (STAR) is 0.69 (normal >= 0.9-1). The right great toe-brachial index (T BI) is 0.34 (normal >= 0.6-0.8). Arterial waveforms are biphasic with brisk systolic upstrokes throug hout the arteries of the right lower limb. The left STAR is 0.83. The left TBI is 0.48. The left lower extremity segmental pressure gradients are increased between the left above and [id number] popliteal arteries. Arterial waveforms are bipha sic with brisk systolic upstrokes throughout the arteries of the left lower limb. IMPRESSION: 1. Bilateral arterial occlusive disease with moderately decreased right STAR and TBI and mildly decrea sed left STAR and TBI. Reviewed, dictated and finalized at location A. IMPRESSION: 1. Bilateral arterial occlusive disease with moderately decreased right STAR and TBI and mildly decreased left STAR and TBI.
== END 2022-05-04 07:53 | disposition home or self-care (01) ==
PROVIDERS: PCP Internal Medicine; Visit Provider Physician Assistant
DX: I73.9 Peripheral vascular disease, unspecified (principal); R55 Syncope and collapse; I65.23 Occlusion and stenosis of bilateral carotid arteries
CPT/HCPCS: 93880; 93923

== ENCOUNTER 2022-06-03 07:35 | Outpatient (CLI) | payer MEDICARE, SELFPAY ==
--- NOTE | ~2022-06-03 | CT_ITS ---
EXAMINATION: CTA abd aorta runoff DATE: 06/03/2022 08:19 INDICATION: Ulcer of right lower extremity. TECHNIQUE: Computed tomographic angiography (CTA) of the abdominal, pelvis, and both lower extremitie s was performed with 150 mL Omnipaque-350 intravenous contrast. Automated exposure control and iterat lexus reconstruction technique were employed. The dose-length product was 613.91 mGy-cm. Maximum intens ity projection 3D-reconstructions of the arteries were created by the technologist on a separate work station. COMPARISON: CT abdomen and pelvis 08/04/2015 FINDINGS: ABDOMINAL AORTA AND ITS BRANCHES: There is atherosclerosis of the abdominal aorta, which is normal in caliber. There is moderate stenos is of celiac axis and superior mesenteric artery. There is moderate stenosis of right renal artery or igin and mild stenosis of left renal artery. There is mild stenosis of origin of inferior mesenteric artery. PELVIC VASCULATURE: There is mild stenosis of the common iliac arteries and internal iliac arteries. There is mild stenos is of the external iliac arteries. RIGHT LOWER EXTREMITY VASCULATURE: There is no significant stenosis of right common femoral artery or profunda femoris. There is moderat e stenosis of distal right superficial femoral artery. There is severe stenosis of the above knee pop liteal artery. There is moderate stenosis of the below-knee popliteal artery. There is total occlusio n of anterior tibial artery with reconstitution in dorsalis pedis. There is total occlusion of rn manager ior tibial artery with reconstitution beyond the ankle. There is no significant stenosis of peroneal artery, which provides collaterals beyond the ankle. LEFT LOWER EXTREMITY VASCULATURE: There is no significant stenosis of left common femoral artery or profunda femoris. There is moderate stenosis of the mid and distal superficial femoral artery. There is moderate stenosis of the above k nee popliteal artery. There is total occlusion of proximal anterior tibial artery with reconstitution of flow in dorsalis pedis. There is no significant stenosis of posterior tibial artery, which crosse s the ankle to supply the plantar arteries. There is no significant stenosis of tibioperoneal trunk o r peroneal artery, which crosses the ankle to provide collaterals. ADDITIONAL FINDINGS: The visualized portions of the lung bases demonstrate mild atelectasis. No pleural effusion. Cardiome adry is noted. There are coronary artery calcifications. No pericardial effusion. There is a small sl iding hiatal hernia. The liver, gallbladder, spleen, pancreas, and adrenal glands are normal. There a re cysts in the kidneys measuring up to 7 mm on the left. There are no dilated loops of bowel. The ap pendix is normal. There are no pathologically enlarged lymph nodes. There is no free intraperitoneal fluid. There is thoracolumbar dextroscoliosis and severe lumbar spondylosis. IMPRESSION: 1. 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 2. Moderate stenosis of right renal artery. 3. Moderate stenosis of distal right superficial femoral artery. Severe stenosis of the above knee po pliteal artery and moderate stenosis of below-knee popliteal artery. 4. Total occlusion of right anterior and posterior tibial arteries. One-vessel runoff on the right. 5. Moderate stenosis of left superficial femoral artery and popliteal artery. 6. Total occlusion of left anterior tibial artery. Two-vessel runoff on the left. Reviewed, dictated and finalized at location A. IMPRESSION: 1. 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 2. Moderate stenosis of right renal artery. 3. Moderate stenosis of distal right superficial femoral artery. Severe stenosi s of the above
[2022-06-03 08:12] LABS: Estimated Glomerular Filt Rate > 60
== END 2022-06-03 07:36 | disposition home or self-care (01) ==
PROVIDERS: PCP Internal Medicine; Visit Provider Internal Medicine Cardiovascular Disease
DX: R68.89 Other general symptoms and signs (principal); L97.919 Non-pressure chronic ulcer of unspecified part of right lower leg with unspecified severity
CPT/HCPCS: 75635; Q9967